=== PATIENT | female | born 1935 | race Caucasian/White ===

== ENCOUNTER → 2016-09-27 | Outpatient (CLI) | payer MEDICARE ==
[2016-09-27 11:37] LABS: ANION GAP 11 (5-19); BLOOD UREA NITROGEN 29 mg/dL (7-20); CALCIUM 9.3 mg/dL (8.4-10.2); CARBON DIOXIDE 30 mmol/L (22-30); CHLORIDE 102 mmol/L (98-107); CHOLESTEROL 184.58 mg/dL (0-200); CREATININE RESULT 1.31 mg/dL (0.52-1.25); Direct HDL 52 mg/dL (>40); GLUCOSE 142 mg/dL (75-110); POTASSIUM 5.4 mmol/L (3.6-5.0); TRIGLYCERIDES 115 mg/dL (<150)
[2016-09-27 11:47] LABS: DIRECT LDL 106 mg/dL (<100)
== END ==
LOC: OD 09:25
PROVIDERS: ATTEND Family Medicine
DX: E11.65 Type 2 diabetes mellitus with hyperglycemia (principal); E78.5 Hyperlipidemia, unspecified; I10 Essential (primary) hypertension; Z79.899 Other long term (current) drug therapy
CPT/HCPCS: 36415; 80048; 80061; 82043; 83036; 84443

== ENCOUNTER → 2016-10-23 | Outpatient (CLI) | payer MEDICARE | LOC: WI 08:47 | PROVIDERS: ATTEND Family Medicine | DX: Z12.31 Encounter for screening mammogram for malignant neoplasm of breast (principal) | CPT/HCPCS: 77067; G0202 ==

== ENCOUNTER → 2016-12-07 | Outpatient (CLI) | payer MEDICARE ==
[2016-12-07 10:36] LABS: APPEARANCE,URINE CLOUDY; BILIRUBIN,URINE NEGATIVE (NEGATIVE); GLUCOSE, URINE NEGATIVE (NEGATIVE); KETONES,URINE NEGATIVE (NEGATIVE); LEUKOCYTE ESTERASE,URINE TRACE (NEGATIVE); NITRITE,URINE NEGATIVE (NEGATIVE); PROTEIN,URINE NEGATIVE (NEGATIVE); UROBILINOGEN,URINE NEGATIVE mg/dL (<2.0)
[2016-12-07 11:05] LABS: ABSOLUTE EOSINOPHILS # (AUTO) 0.2 10^3/uL (0.0-0.6); ABSOLUTE LYMPHOCYTES (AUTO) 2.6 10^3/uL (0.5-4.7); ABSOLUTE MONOCYTES (AUTO) 0.7 10^3/uL (0.1-1.4); ABSOLUTE NEUT (AUTO) 4.6 10^3/uL (1.7-8.2); BASOPHILS % (AUTO) 0.5 % (0-2); EOSINOPHILS % (AUTO) 1.9 % (0-6); HEMATOCRIT 35.9 % (36.0-47.0); HGB HCT DIFFERENCE 0.1; LYMPHOCYTES % (AUTO) 32.5 % (13-45); MEAN CORPUSCULAR HEMOGLOBIN 26.3 pg (27.0-33.4); MEAN CORPUSCULAR HGB CONC 33.4 g/dL (32.0-36.0); MEAN CORPUSCULAR VOLUME 79 fl (80-97); MONOCYTES % (AUTO) 8.5 % (3-13); RED BLOOD COUNT 4.55 10^6/uL (3.72-5.28); SEGMENTED NEUTROPHILS % (AUTO) 56.6 % (42-78); WHITE BLOOD COUNT 8.1 10^3/uL (4.0-10.5)
[2016-12-07 11:18] LABS: ANION GAP 16 (5-19); BLOOD UREA NITROGEN 24 mg/dL (7-20); CALCIUM 9.4 mg/dL (8.4-10.2); CARBON DIOXIDE 26 mmol/L (22-30); CHLORIDE 100 mmol/L (98-107); CREATININE RESULT 1.41 mg/dL (0.52-1.25); GLUCOSE 211 mg/dL (75-110); PHOSPHORUS 4.6 mg/dL (2.5-4.5); POTASSIUM 4.8 mmol/L (3.6-5.0); SODIUM 141.5 mmol/L (137-145)
[2016-12-08 10:38] LABS: CREATININE URINE 87.4 mg/dL (Not Estab.); MICROALBUMIN URINE 15.8 ug/mL (Not Estab.)
[2016-12-08 11:27] LABS: VITAMIN D 25-HYDROXY 14.2 ng/mL (30.0-100.0)
== END ==
LOC: OD 09:38
PROVIDERS: ATTEND Internal Medicine Nephrology
DX: N18.3 Chronic kidney disease, stage 3 (moderate) (principal); E11.21 Type 2 diabetes mellitus with diabetic nephropathy; E87.5 Hyperkalemia
CPT/HCPCS: 36415; 80048; 81001; 82040; 82043; 82306; 82570; 83970; 84100; 85025

== ENCOUNTER → 2017-05-29 | Outpatient (CLI) | payer MEDICARE | LOC: OD 11:29 | PROVIDERS: ATTEND Family Medicine | DX: E11.65 Type 2 diabetes mellitus with hyperglycemia (principal) | CPT/HCPCS: 36415; 83036 ==

== ENCOUNTER → 2017-10-31 | Outpatient (CLI) | payer MEDICARE ==
--- NOTE | 2017-11-01 08:50 | WOMENS IMAGING REPORT ---
EXAM DESCRIPTION: 3D SCREENING MAMMO BILAT COMPLETED DATE/TIME: 10/31/2017 12:31 pm REASON FOR STUDY: ROUTINE SCREENING; Z12.31 Z12.31 ENCNTR SCREEN MAMMOGRAM FOR MALIGNANT NEOPLASM O F PADMINI COMPARISON: 2012 to 2016 TECHNIQUE: Standard craniocaudal and mediolateral oblique views of each breast recorded using digita l acquisition and breast tomosynthesis. LIMITATIONS: None. FINDINGS: No masses, calcifications or architectural distortion. No areas of suspicion. Read with the assistance of CAD. .[facility] - R2 Cenova Version 1.3 .[facility] - R2 Cenova Version 1.3 .[facility] - R2 Cenova Version 2.4 .[facility] [place] Cenova Version 2.4 .[facility] - R2 Mailroom Associate Version 9.2 IMPRESSION: NORMAL MAMMOGRAM. BIRADS 1. BREAST DENSITY: b. There are scattered areas of fibroglandular density. BIRAD: 1 NEGATIVE RECOMMENDATION: ROUTINE SCREENING COMMENT: The patient has been notified of the results by letter per SA requirements. Additional no tification policies are in place for contacting patient with suspicious or incomplete findings. Quality ID #[id number]: The [employer] recommends an annual screening mammogram for women aged 40 years or over. This facility utilizes a reminder system to ensure that all patients receive reminder letters, and/or direct phone calls for appointments. This includes reminders for routine scr eening mammograms, diagnostic mammograms, or other Breast Imaging Interventions when appropriate. Th is patient will be placed in the appropriate reminder system. The [employer] (ACR) has developed recommendations for screening MRI of the breast s in certain patient populations, to be used in conjunction with mammography. Breast MRI surveillanc e may be appropriate for women with more than 20% lifetime risk of developing breast cancer as deter mined by genetic testing, significant family history of the disease, or history of mantle radiation f or Hodgkins Disease. ACR Practice Guidelines 2008. DBT Technology DBT is a type of tomographic mammography. With conventional mammography, overlapping breast tissue ma y make lesions difficult to detect, even with good compression. DBT uses an x-ray tube that rotates a round the breast, taking images at different angles. These images are then combined to create thin sl ices of the breast that the radiologist can view as a 3D reconstruction. The GO-SIM unit can perform full-field digital mammograms (2D imaging); or DBT (3D imaging); or both, in a combination mode that quickly performs both the mammogram and the tomosynthesis scan while the breast is still compressed. PQRS 6045F: Fluoroscopic imaging is not utilized for breast tomosynthesis. TECHNICAL DOCUMENTATION: FINDING NUMBER: (1) ASSESSMENT: (1) JOB ID: [id number] [employer]- All Rights Reserved
== END ==
LOC: WI 10:36
PROVIDERS: ATTEND Family Medicine
DX: Z12.31 Encounter for screening mammogram for malignant neoplasm of breast (principal)
CPT/HCPCS: 77063; 77067

== ENCOUNTER → 2017-12-27 | Outpatient (CLI) | payer MEDICARE ==
[2017-12-27 11:08] LABS: ANION GAP 13 (5-19); BLOOD UREA NITROGEN 18 mg/dL (7-20); CALCIUM 9.2 mg/dL (8.4-10.2); CARBON DIOXIDE 29 mmol/L (22-30); CHLORIDE 101 mmol/L (98-107); GLUCOSE 165 mg/dL (75-110); POTASSIUM 4.6 mmol/L (3.6-5.0)
[2017-12-28 10:32] LABS: CHOLESTEROL 165.13 mg/dL (0-200); TRIGLYCERIDES 87 mg/dL (<150)
[2017-12-28 10:43] LABS: DIRECT LDL 80 mg/dL (<100)
== END ==
LOC: OD 08:57
PROVIDERS: ATTEND Family Medicine
DX: E11.65 Type 2 diabetes mellitus with hyperglycemia (principal); I10 Essential (primary) hypertension; Z79.899 Other long term (current) drug therapy
CPT/HCPCS: 36415; 80048; 80061; 83036; 84443

== ENCOUNTER → 2018-06-24 | Outpatient (CLI) | payer MEDICARE | LOC: OD 12:24 | PROVIDERS: ATTEND Family Medicine | DX: E03.9 Hypothyroidism, unspecified (principal); E11.65 Type 2 diabetes mellitus with hyperglycemia; Z79.899 Other long term (current) drug therapy | CPT/HCPCS: 36415; 83036; 84436; 84443 ==

== ENCOUNTER → 2018-11-01 | Outpatient (CLI) | payer MEDICARE ==
--- NOTE | 2018-11-01 09:39 | WOMENS IMAGING REPORT ---
EXAM DESCRIPTION: 3D SCREENING MAMMO BILAT COMPLETED DATE/TIME: 11/01/2018 9:23 am REASON FOR STUDY: Z12.31 ENCOUNTER FOR SCREENING MAMMOGRAM FOR MALIGNANT NEOPLASM OF BREAST Z12.31 ENCNTR SCREEN MAMMOGRAM FOR MALIGNANT NEOPLASM OF PADMINI COMPARISON: Multiple since 2007 TECHNIQUE: Standard craniocaudal and mediolateral oblique views of each breast recorded using digita l acquisition and breast tomosynthesis. LIMITATIONS: None. FINDINGS: No masses, calcifications or architectural distortion. No areas of suspicion. Read with the assistance of CAD. .[facility] - R2 Cenova Version 1.3 .[facility] Imaging - R2 Cenova Version 2.1 .[facility] Imaging - R2 Cenova Version 2.4 .[facility] [place] - R2 Cenova Version 2.4 .[facility] - R2 Integration Technician Version 9.2 IMPRESSION: NORMAL MAMMOGRAM. BIRADS 1. BREAST DENSITY: a. The breasts are almost entirely fatty. BIRAD: 1 NEGATIVE RECOMMENDATION: ROUTINE SCREENING COMMENT: The patient has been notified of the results by letter per SA requirements. Additional no tification policies are in place for contacting patient with suspicious or incomplete findings. Quality ID #[id number]: The [employer] recommends an annual screening mammogram for women aged 40 years or over. This facility utilizes a reminder system to ensure that all patients receive reminder letters, and/or direct phone calls for appointments. This includes reminders for routine scr eening mammograms, diagnostic mammograms, or other Breast Imaging Interventions when appropriate. Th is patient will be placed in the appropriate reminder system. The [employer] (ACR) has developed recommendations for screening MRI of the breast s in certain patient populations, to be used in conjunction with mammography. Breast MRI surveillanc e may be appropriate for women with more than 20% lifetime risk of developing breast cancer as deter mined by genetic testing, significant family history of the disease, or history of mantle radiation f or Hodgkins Disease. ACR Practice Guidelines 2008. DBT Technology DBT is a type of tomographic mammography. With conventional mammography, overlapping breast tissue ma y make lesions difficult to detect, even with good compression. DBT uses an x-ray tube that rotates a round the breast, taking images at different angles. These images are then combined to create thin sl ices of the breast that the radiologist can view as a 3D reconstruction. The [employer] unit can perform full-field digital mammograms (2D imaging); or DBT (3D imaging); or both, in a combination mode that quickly performs both the mammogram and the tomosynthesis scan while the breast is still compressed. PQRS 6045F: Fluoroscopic imaging is not utilized for breast tomosynthesis. TECHNICAL DOCUMENTATION: FINDING NUMBER: (1) ASSESSMENT: (1) JOB ID: [id number] [employer]- All Rights Reserved Reading location - IP/workstation name: [email or web address][email or web address] [email or web address]
== END ==
LOC: WI 09:01
PROVIDERS: ATTEND Family Medicine
DX: Z12.31 Encounter for screening mammogram for malignant neoplasm of breast (principal)
CPT/HCPCS: 77063; 77067

== ENCOUNTER → 2018-12-26 | Outpatient (CLI) | payer MEDICARE ==
[2018-12-26 10:20] LABS: ANION GAP 11 (5-19); BLOOD UREA NITROGEN 21 mg/dL (7-20); CALCIUM 9.5 mg/dL (8.4-10.2); CARBON DIOXIDE 27 mmol/L (22-30); CHLORIDE 97 mmol/L (98-107); CHOLESTEROL 138.12 mg/dL (0-200); GLUCOSE 131 mg/dL (75-110); POTASSIUM 4.4 mmol/L (3.6-5.0); SODIUM 134.8 mmol/L (137-145); TRIGLYCERIDES 90 mg/dL (<150)
[2018-12-26 10:32] LABS: DIRECT LDL 67 mg/dL (<100)
== END ==
LOC: OD 09:10
PROVIDERS: ATTEND Family Medicine
DX: E03.9 Hypothyroidism, unspecified (principal); E78.5 Hyperlipidemia, unspecified; I10 Essential (primary) hypertension; Z79.899 Other long term (current) drug therapy
CPT/HCPCS: 36415; 80048; 80061; 83036; 84443

== ENCOUNTER 2019-12-08 12:49 | Inpatient (IN) | payer MEDICARE ==
--- NOTE | 2019-12-08 13:06 | ER Document Report ---
ED Respiratory Problem - General Chief Complaint: Shortness Of Breath Stated Complaint: SHORTNESS OF BREATH Time Seen by Provider: 12/08/19 12:59 Primary Care Provider: JOURDAN JIMENEZ MD [Primary Care Provider] - Follow up as needed Notes: 84-year-old female with history of hypertension hyperlipidemia presents to the ER complaining of difficulty breathing and leg swelling the last several days. The patient does not have a roster clerk. She tried to call her primary care doctor Dr. Jimenez but they were closed. The patient stated her problem breathing is worse with exertion and lying flat. The patient denies any fever chills cough or sore throat. Denies chest pain. States she knows ever has had a history of A. fib or heart failure. Patient also states she is been out of her meds now for over a week. She has not been able to get into her doctor to fill them. TRAVEL OUTSIDE OF THE [place] IN LAST 30 DAYS: No - Related Data Allergies/Adverse Reactions: quinine [Quinine] Allergy (Verified 07/20/11 10:19) Dizziness Past Medical History - Social History Smoking Status: Unknown if Ever Smoked Family History: None - Past Medical History Cardiac Medical History: Reports: Hx Hypercholesterolemia, Hx Hypertension Endocrine Medical History: Reports: Hx Diabetes Mellitus Type 2 Past Surgical History: Reports: Hx Hysterectomy - Immunizations Hx Diphtheria, Pertussis, Tetanus Vaccination: Yes - 3yrs agp Review of Systems - Review of Systems Constitutional: denies: Chills, Diaphoresis, Fever EENT: No symptoms reported Cardiovascular: Dyspnea, Edema. denies: Chest pain, Palpitations Respiratory: Short of breath. denies: Cough, Hurts to breathe, Hemoptysis, Wheezing Gastrointestinal: denies: Nausea Musculoskeletal: No symptoms reported Skin: No symptoms reported Neurological/Psychological: No symptoms reported -: Yes All other systems reviewed and negative Physical Exam - Vital signs Vitals: Temp Pulse Ox 98.0 F 97 12/08/19 12:50 12/08/19 12:50 - Notes Notes: GENERAL_APPEARANCE: well_nourished, alert, cooperative, slight difficulty breathing VITALS: reviewed, see vital signs table. HEAD: no_swelling\tenderness on the head. EYES: PERRL, EOMI, conjunctiva_clear. NOSE: no_nasal_discharge. MOUTH: (-)decreased moisture. THROAT: no_tonsilar_inflammation, no_airway_obstruction. no_lymphadenopathy NECK: supple, no_neck_tenderness, (-)thyromegaly. Positive JVD BACK: no_back_tenderness. CHEST_WALL: no_chest_tenderness. LUNGS: no_wheezing, no_rales, no_rhonchi, (-)accessory muscle use, good air exchange bilateral. HEART:-Rapid_rate, irregular_rhythm, normal_S1, normal_S2, (-)S3, (-)S4, no_murmur, no_rub. ABDOMEN: normal_BS, soft, no_abd_tenderness, (-)guarding, (-)rebound, no_organomegaly, no_abd_masses. EXTREMITIES: strength 5/5 in all_extremities, good pulses in all_extremities, no_swelling\tenderness in the extremities, 3+ pitting_edema. SKIN: warm, dry, good_color, no_rash. MENTAL_STATUS: speech_clear, oriented_X_3, normal_affect, responds_appropriately to questions. Course - Re-evaluation Re-evalutation: 12/08/19 13:19 84-year-old female presents to the emergency department with difficulty breathing. Patient was found to have A. fib with RVR replaced on Cardizem and Cardizem drip will diurese the patient. We will do lab work-up. Patient states she has no history of A. fib. She has been out of her medicines for over a week. Patient will likely be hospitalized for atrial fibrillation. 12/08/19 14:58 Patient was rate controlled with Cardizem and Cardizem drip. Looking back in her history it looks like she does have a history of A. fib she does not look to be anticoagulated. The patient is in mild heart failure we will give the patient 40 mg of Lasix IV and since she is not anticoagulated we will give some Lovenox. Patient is not a very good historian. I spoke with the hospital service to hospitalize the patient for further care. - Vital Signs Vital signs: Temp Pulse Resp BP Pulse Ox 98.0 F 22 H 129/113 H 96 12/08/19 13:26 12/08/19 14:46 12/08/19 14:46 12/08/19 14:45 - Laboratory Result Diagrams: 12/08/19 13:05 12/08/19 13:05 Laboratory results interpreted by me: 12/08/19 12/08/19 12/08/19 13:05 13:05 13:05 MCV 79 L MCH 26.3 L RDW 16.1 H Seg Neuts % (Manual) 81 H Lymphocytes % (Manual) 11 L Sodium 132.6 L Chloride 94 L BUN 21 H Est GFR (MDRD) Non-Af 56 L Glucose 272 H NT-Pro-B Natriuret Pep 10670 H - EKG Interpretation by Me Rate: Tachycardia Rhythm: A.Fib Critical Care Note - Critical Care Note Total time excluding time spent on procedures (mins): 31 Discharge - Discharge Clinical Impression: Atrial fibrillation with RVR CHF (congestive heart failure) Qualifiers: Heart failure type: systolic Heart failure chronicity: acute Qualified Code(s): I50.21 - Acute systolic (congestive) heart failure Condition: Fair Disposition: ADMITTED INPATIENT Admitting Provider: Yesenia (Hospitalist) Unit Admitted: Telemetry Referrals: JOURDAN JIMENEZ MD [Primary Care Provider] - Follow up as needed
[2019-12-08] MEDS ORDERED: DILTIAZEM HCL/D5W 125 MG/125 ML RTUINJ IV PRN (13:15)
[2019-12-08] MEDS ORDERED: DILTIAZEM HCL INJ 25 MG/5 ML VIAL IV ONE (13:15)
--- NOTE | 2019-12-08 13:23 | EKG REPORT ---
SEVERITY:- ABNORMAL ECG - ATRIAL FIBRILLATION NONSPECIFIC IVCD WITH LAD LVH WITH SECONDARY REPOLARIZATION ABNORMALITY PROBABLE INFERIOR INFARCT, OLD : Confirmed by: Laura Ramires 08-Dec-2019 13:23:00
[2019-12-08 13:28] LABS: HEMATOCRIT 36.5 % (36.0-47.0); HEMOGLOBIN 12.1 g/dL (12.0-15.5); MEAN CORPUSCULAR HEMOGLOBIN 26.3 pg (27.0-33.4); MEAN CORPUSCULAR HGB CONC 33.1 g/dL (32.0-36.0); MEAN CORPUSCULAR VOLUME 79 fl (80-97); PLATELET COUNT 214 10^3/uL (150-450); RED CELL DISTRIBUTION WIDTH 16.1 % (11.5-14.0); WHITE BLOOD COUNT 8.4 10^3/uL (4.0-10.5)
--- NOTE | 2019-12-08 13:31 | RADIOLOGY REPORT (SQ) ---
EXAM DESCRIPTION: CHEST SINGLE VIEW IMAGES COMPLETED DATE/TIME: 12/08/2019 1:22 pm REASON FOR STUDY: short of breath COMPARISON: None. NUMBER OF VIEWS: One view. TECHNIQUE: Single frontal radiographic view of the chest acquired. LIMITATIONS: None. FINDINGS: LUNGS AND PLEURA: Small effusions, right greater than left with associated airspace diseas e. MEDIASTINUM AND HILAR STRUCTURES: No masses or contour abnormality. HEART AND VASCULATURE: Cardiac enlargement. Vascular congestion. BONES: No acute findings. HARDWARE: None in the chest. OTHER: No other significant finding. IMPRESSION: CHF. TECHNICAL DOCUMENTATION: JOB ID: [id number] [employer]- All Rights Reserved Reading location - IP/workstation name: [email or web address]
[2019-12-08 13:32] LABS: INTERNATIONAL RATION (INR) 1.21; PARTIAL THROMBOPLASTIN TIME 29.2 SEC (23.5-35.8); PROTHROMBIN TIME 15.4 SEC (11.4-15.4)
[2019-12-08 13:55] LABS: ALBUMIN 3.7 g/dL (3.5-5.0); ALKALINE PHOSPHATASE 125 U/L (38-126); ANION GAP 12 (5-19); ASPARTATE AMINO TRANSFERASE 35 U/L (14-36); BILIRUBIN,DIRECT 0.3 mg/dL (0.0-0.4); BILIRUBIN,TOTAL 1.3 mg/dL (0.2-1.3); BLOOD UREA NITROGEN 21 mg/dL (7-20); CALCIUM 8.7 mg/dL (8.4-10.2); CARBON DIOXIDE 27 mmol/L (22-30); CHLORIDE 94 mmol/L (98-107); GLUCOSE 272 mg/dL (75-110); POTASSIUM 4.9 mmol/L (3.6-5.0); TOTAL PROTEIN 7.3 g/dL (6.3-8.2)
[2019-12-08 14:17] LABS: ABSOLUTE LYMPHOCYTES# (MANUAL) 0.9 10^3/uL (0.5-4.7); ABSOLUTE MONOCYTES # (MANUAL) 0.7 10^3/uL (0.1-1.4); BASOPHILS % (MANUAL) 0 % (0-2); EOSINOPHILS % (MANUAL) 0 % (0-6); LYMPHOCYTES % (MANUAL) 11 % (13-45); MONOCYTES % (MANUAL) 8 % (3-13); SEGMENTED NEUTROPHILS % (MAN) 81 % (42-78); TOTAL CELLS COUNTED 100
[2019-12-08 14:19] LABS: ANISOCYTOSIS 1+; BURR CELLS SLIGHT; OVALOCYTES SLIGHT; PLATELET COMMENT ADEQUATE; POLYCHROMASIA SLIGHT; TARGET CELLS SLIGHT
[2019-12-08 14:40] LABS: CREATINE KINASE MB 4.49 ng/mL (<4.55); TROPONIN I 0.021 ng/mL
[2019-12-08] MEDS ORDERED: FUROSEMIDE INJ/PF 40 MG/4 ML SDV IV ONE (14:51)
[2019-12-08] MEDS ORDERED: ASPIRIN 81 MG TABLET, CHEWABLE PO ONE (14:51)
[2019-12-08] MEDS ORDERED: ENOXAPARIN SODIUM INJ 100 MG/1 ML DISP.SYRIN SUBCUT SCH (15:00)
[2019-12-08] MEDS ORDERED: GLUCAGON,HUMAN RECOMB 1 MG INJ IM PRN (16:04)
[2019-12-08] MEDS ORDERED: DEXTROSE 50%-WATER 25 GM/50 ML DISP.SYRIN IV PRN ×2 (16:04)
[2019-12-08] MEDS ORDERED: DEXTROSE 40% GEL 15 GM TUBE PO PRN ×2 (16:04)
--- NOTE | 2019-12-08 16:22 | PDOC H&P ---
History of Present Illness Admission Date/PCP: 12/08/19 15:25 JOURDAN CALZADA MD Patient complains of: Increased leg swelling History of Present Illness: ALICIA DAMON is a 84 year old female with a history of hypertension, type 2 diabetes mellitus, hypothyroidism, who presents with complaints of increased leg swelling going on for the past 10 days. Patient also admits to mild dyspnea on exertion. Denies any history of A. fib or congestive heart failure. Admits to orthopnea. Denies PND. Denies any chest pain, rhinorrhea, fever, chills. Denies sick contacts. Denies any out of state travels since August 2019. Denies any exposures to any known sick persons. She does occasionally get food from restaurants otherwise does not do much of any outing. Patient was noted to be A. fib RVR in the 130s in the ER and placed on Cardizem drip. Referred to hospitalist service for admission. Past Medical History Cardiac Medical History: Reports: Hyperlipidema, Hypertension Endocrine Medical History: Reports: Diabetes Mellitus Type 2 Past Surgical History Past Surgical History: Reports: Hysterectomy Social History Lives with: Alone Smoking Status: Never Smoker Frequency of Alcohol Use: None Hx Recreational Drug Use: No - Advance Directive Resuscitation Status: Full Code Family History Family History: DM, Hypertension Parental Family History Reviewed: Yes Children Family History Reviewed: NA Sibling(s) Family History Reviewed.: Yes Medication/Allergy Home Medications: Amlodipine Besylate [Norvasc 10 mg Tablet] 10 mg PO DAILY 12/08/19 Atorvastatin Calcium [Lipitor 40 mg Tablet] 40 mg PO QHS 12/08/19 Levothyroxine Sodium [Synthroid 0.05 mg Tablet] 0.05 mg PO Q6AM 12/08/19 Metformin HCl 0.5 tab PO BID 12/08/19 Valsartan/Hydrochlorothiazide [Valsartan-Hctz 320-25 mg Tab] 1 tab PO DAILY 12/08/19 Allergies/Adverse Reactions: quinine [Quinine] Allergy (Verified 07/20/11 10:19) Dizziness Review of Systems Constitutional: ABSENT: chills, fatigue, fever(s) Eyes: ABSENT: visual disturbances Nose, Mouth, and Throat: ABSENT: headache(s), sore throat Cardiovascular: PRESENT: dyspnea on exertion, orthropnea. ABSENT: chest pain Respiratory: ABSENT: hemoptysis Gastrointestinal: ABSENT: abdominal pain, nausea, vomiting Genitourinary: ABSENT: dysuria Musculoskeletal: ABSENT: back pain Integumentary: ABSENT: diaphoresis Neurological: ABSENT: confusion, dizziness Endocrine: ABSENT: polyuria Hematologic/Lymphatic: ABSENT: easy bleeding Physical Exam Vital Signs: Temp Pulse Resp BP Pulse Ox 98.0 F 30 H 136/82 H 92 12/08/19 13:26 12/08/19 15:46 12/08/19 15:46 12/08/19 15:46 Intake & Output 12/07/19 12/08/19 12/09/19 06:59 06:59 06:59 Weight 95 kg General appearance: PRESENT: no acute distress, cooperative Mouth exam: PRESENT: neck supple Neck exam: ABSENT: JVD Respiratory exam: PRESENT: crackles, symmetrical, unlabored. ABSENT: tachypnea, wheezes Cardiovascular exam: PRESENT: irregular rhythm, +S1, +S2. ABSENT: tachycardia GI/Abdominal exam: PRESENT: soft. ABSENT: rebound, rigid, tenderness Extremities exam: ABSENT: pedal edema Neurological exam: PRESENT: alert, awake, oriented to person, oriented to place, oriented to time Psychiatric exam: ABSENT: agitated, anxious Results Laboratory Results: 12/08/19 13:05 12/08/19 13:05 12/08/19 12/08/19 13:05 13:05 WBC 8.4 RBC 4.60 Hgb 12.1 Hct 36.5 MCV 79 L MCH 26.3 L MCHC 33.1 RDW 16.1 H Plt Count 214 Seg Neutrophils % Not Reportable Sodium 132.6 L Potassium 4.9 Chloride 94 L Carbon Dioxide 27 Anion Gap 12 BUN 21 H Creatinine 0.95 Est GFR ( Amer) > 60 Glucose 272 H Calcium 8.7 Total Bilirubin 1.3 AST 35 Alkaline Phosphatase 125 Total Protein 7.3 Albumin 3.7 12/08/19 13:05 CK-MB (CK-2) 4.49 Troponin I 0.021 NT-Pro-B Natriuret Pep 52562 H Impressions: Chest X-Ray 12/08/19 12:51 IMPRESSION: CHF. Assessment and Plan - Diagnosis (1) Atrial fibrillation with RVR Is this a current diagnosis for this admission?: Yes Plan: Cannot specify if paroxysmal or persistent. New onset A. fib. Currently on a Cardizem drip. I will start patient on p.o. Cardizem and try to wean off drip. CHADSVASC score of 5 --start on Eliquis Elevated troponin-likely secondary to tachyarrhythmia. Repeat troponin levels. (2) Acute CHF (congestive heart failure) Qualifiers: Heart failure type: unspecified Qualified Code(s): I50.9 - Heart failure, unspecified Is this a current diagnosis for this admission?: Yes Plan: BNP significantly elevated, chest x-ray showing increased vascular congestion, crackles on exam. New onset. Associated with tachyarrhythmia. Cardiology consulted. Start patient on Lasix IV 40 mg daily. Strict I's and O's. Check echocardiogram. (3) Diabetes mellitus type 2 in obese Is this a current diagnosis for this admission?: Yes Plan: Continue metformin. Sliding scale insulin and Accu-Cheks. ADA diet (4) Hypertension Qualifiers: Hypertension type: essential hypertension Qualified Code(s): I10 - Essential (primary) hypertension Is this a current diagnosis for this admission?: Yes Plan: Continue valsartan, hydrochlorothiazide and amlodipine (5) Hypothyroidism Qualifiers: Hypothyroidism type: unspecified Qualified Code(s): E03.9 - Hypothyroidism, unspecified Is this a current diagnosis for this admission?: Yes Plan: Check TSH. Continue Synthroid. - Time Time Spent with patient: 25-34 minutes
[2019-12-08] MEDS: VALSARTAN 160 MG TABLET PO SCH (17:30)
[2019-12-08] MEDS: METFORMIN HCL 850 MG TABLET PO SCH (17:31)
[2019-12-08] MEDS ORDERED: DILTIAZEM HCL 60 MG TABLET PO SCH (18:00)
[2019-12-08] MEDS ORDERED: APIXABAN 2.5 MG TABLET PO SCH (18:00)
--- NOTE | 2019-12-08 18:06 | EKG REPORT ---
SEVERITY:- ABNORMAL ECG - ATRIAL FIBRILLATION, V-RATE 66-87 LEFT AXIS DEVIATION LOW VOLTAGE IN FRONTAL LEADS BORDERLINE R WAVE PROGRESSION, ANTERIOR LEADS NONSPECIFIC T ABNORMALITIES, DIFFUSE LEADS : Confirmed by: Laura Ramires 08-Dec-2019 18:06:09
[2019-12-08] MEDS ORDERED: METOPROLOL TARTRATE PF/INJ 5 MG/5 ML SDV IV PRN (18:47)
--- NOTE | 2019-12-08 21:25 | XCELERA REPORT ---
[address] [address] Transthoracic Echocardiogram Report Name: ALICIA DAMON Age: 84 yrs Gender: Female : 1935 Patient Status: Inpatient Patient Location: [address] [place], [place] [address] Study Date: 12/08/2019 06:54 PM Height: 63 in Weight: 209 lb BSA: 2.0 m2 Procedure: A complete two-dimensional transthoracic echocardiogram was performed (2D, M-mode, spectral and color flow Doppler). The study was technically difficult with many images being suboptimal in quality. Reason For Study: new onset afib and chf Ordering Physician: DONOVAN DARBY Performed By: Rosalva King Interpretation Summary The Ejection Fraction estimate is 35-40% Left ventricular systolic function is moderately reduced. There is moderate concentric left ventricular hypertrophy. The left ventricle is grossly normal size. Doppler measurements suggest pseudonormalized left ventricular relaxation, which is associated with grade II/IV or mild to moderate diastolic dysfunction There is apical wall akinesis There is distal anterior wall akinesis The right ventricle is mildly dilated. The right ventricular systolic function is borderline reduced. The right atrium is moderately dilated. The left atrium is moderately dilated. There is a moderate amount of mitral regurgitation There is no mitral valve stenosis. There is mild aortic stenosis There is a moderate amount of aortic regurgitation There is a moderate to severe amount of tricuspid regurgitation Best estimated right ventricular systolic pressure is elevated at 50-60mmHg. There is moderate pulmonary hypertension by echo The inferior vena cava appeared normal and decreased < 50% with respiration (RAP 10-15 mmHg) There is no pericardial effusion. Small right pleural effusion. MMode/2D Measurements & Calculations RVDd: 3.3 cm LVIDd: 4.3 cm FS: 20.3 % Ao root diam: 2.9 cm IVSd: 1.3 cm LVIDs: 3.4 cm EDV(Teich): 82.7 ml Ao root area: 6.7 cm2 LVPWd: 1.3 cm ESV(Teich): 48.2 ml LA dimension: 4.2 cm EF(Teich): 41.8 % Doppler Measurements & Calculations MV E max abdullahi: MV P1/2t max abdullahi: Ao V2 max: AI max abdullahi: 139.3 cm/sec 156.1 cm/sec 173.4 cm/sec 331.2 cm/sec MV A max abdullahi: MV P1/2t: 68.1 msec Ao max PG: AI max P.6 cm/sec MVA(P1/2t): 3.2 cm2 12.0 mmHg 43.9 mmHg MV E/A: 3.0 MV dec slope: AI dec slope: 287.0 cm/sec2 671.0 cm/sec2 AI P1/2t: MV dec time: 0.27 sec 338.0 msec LV V1 max PG: PA V2 max: TR max abdullahi: AV P1/2t-pr_phl: 3.1 mmHg 70.1 cm/sec 346.1 cm/sec 338.0 msec LV V1 max: PA max P.0 mmHg TR max P.5 cm/sec 47.9 mmHg MV P1/2t-pr_phl: 68.1 msec Left Ventricle The left ventricle is grossly normal size. There is moderate concentric left ventricular hypertrophy. Left ventricular systolic function is moderately reduced. The Ejection Fraction estimate is 35-40%. Doppler measurements suggest pseudonormalized left ventricular relaxation, which is associated with grade II/IV or mild to moderate diastolic dysfunction. There is apical wall akinesis. There is distal anterior wall akinesis. Right Ventricle The right ventricle is mildly dilated. The right ventricular systolic function is borderline reduced. Atria The right atrium is moderately dilated. The left atrium is moderately dilated. Interarterial septum not well visualized and not well dopplered. Cannot comment on ASD/PFO presence. Mitral Valve There is mild mitral leaflet calcification. There is moderate mitral annular calcification. There is no mitral valve stenosis. There is a moderate amount of mitral regurgitation. Aortic Valve The aortic valve is moderately calcified. There is mild aortic stenosis. There is a moderate amount of aortic regurgitation. Tricuspid Valve The tricuspid valve is not well visualized, but is grossly normal. There is no tricuspid stenosis. There is a moderate to severe amount of tricuspid regurgitation. Best estimated right ventricular systolic pressure is elevated at 50-60mmHg. There is moderate pulmonary hypertension by echo. Pulmonic Valve The pulmonic valve is not well visualized. Great Vessels The aortic root is not well visualized but is probably normal size. The inferior vena cava appeared normal and decreased < 50% with respiration (RAP 10-15 mmHg). Effusions There is no pericardial effusion. Small right pleural effusion. : DONOVAN DARBY Shyamal
[2019-12-08] MEDS: APIXABAN 2.5 MG TABLET PO SCH (21:37)
[2019-12-08] MEDS: METOPROLOL SUCCINATE 25 MG TAB.SR.24H PO SCH (21:38)
[2019-12-08] MEDS: ATORVASTATIN CALCIUM 40 MG TABLET PO SCH (21:38)
[2019-12-08] MEDS: INSULIN LISPRO 100 UNIT/ML 3 ML VIAL SUBCUT SCH (21:39)
[2019-12-08] MEDS: CALCIUM CARBONATE 500 MG TAB.CHEW PO PRN (21:39)
[2019-12-09 05:11] LABS: ABSOLUTE EOSINOPHILS # (AUTO) 0.1 10^3/uL (0.0-0.6); ABSOLUTE LYMPHOCYTES (AUTO) 1.4 10^3/uL (0.5-4.7); ABSOLUTE MONOCYTES (AUTO) 1.3 10^3/uL (0.1-1.4); BASOPHILS % (AUTO) 0.5 % (0-2); EOSINOPHILS % (AUTO) 0.6 % (0-6); HEMATOCRIT 34.4 % (36.0-47.0); HEMOGLOBIN 11.3 g/dL (12.0-15.5); LYMPHOCYTES % (AUTO) 14.2 % (13-45); MEAN CORPUSCULAR HEMOGLOBIN 25.6 pg (27.0-33.4); MEAN CORPUSCULAR HGB CONC 32.7 g/dL (32.0-36.0); MEAN CORPUSCULAR VOLUME 78 fl (80-97); MONOCYTES % (AUTO) 13.1 % (3-13); PLATELET COUNT 195 10^3/uL (150-450); RED CELL DISTRIBUTION WIDTH 15.4 % (11.5-14.0); SEGMENTED NEUTROPHILS % (AUTO) 71.6 % (42-78); TOTAL CELLS COUNTED % (AUTO) 100 %; WHITE BLOOD COUNT 9.7 10^3/uL (4.0-10.5)
[2019-12-09 05:32] LABS: ANION GAP 10 (5-19); BLOOD UREA NITROGEN 22 mg/dL (7-20); CALCIUM 8.4 mg/dL (8.4-10.2); CARBON DIOXIDE 27 mmol/L (22-30); CHLORIDE 95 mmol/L (98-107); GLUCOSE 146 mg/dL (75-110); PHOSPHORUS 3.6 mg/dL (2.5-4.5); POTASSIUM 4.1 mmol/L (3.6-5.0)
[2019-12-09] MEDS: LEVOTHYROXINE SODIUM 0.05 MG TABLET PO SCH (06:16)
[2019-12-09] MEDS: INSULIN LISPRO 100 UNIT/ML 3 ML VIAL SUBCUT SCH ×4 (07:48→21:39)
[2019-12-09] MEDS: METFORMIN HCL 850 MG TABLET PO SCH ×2 (09:10→17:32)
[2019-12-09] MEDS: APIXABAN 2.5 MG TABLET PO SCH ×2 (09:10→21:41)
[2019-12-09] MEDS: VALSARTAN 160 MG TABLET PO SCH (09:11)
[2019-12-09] MEDS: METOPROLOL SUCCINATE 25 MG TAB.SR.24H PO SCH ×2 (09:11→21:41)
[2019-12-09] MEDS: FUROSEMIDE INJ/PF 100 MG/10 ML SDV IV SCH ×2 (09:11→17:32)
--- NOTE | 2019-12-09 09:25 | EKG REPORT ---
SEVERITY:- ABNORMAL ECG - ATRIAL FIBRILLATION NONSPECIFIC IVCD WITH LAD LVH WITH SECONDARY REPOLARIZATION ABNORMALITY PROBABLE INFERIOR INFARCT, OLD ANTERIOR INFARCT, OLD : Confirmed by: Laura Ramires 09-Dec-2019 09:24:44
--- NOTE | 2019-12-09 09:43 | PDOC PROGRESS REPORT ---
Subjective Progress Note for:: 12/09/19 Subjective:: Patient states that she feels better today. Denies any palpitation. Shortness of breath feels better at rest but has not ambulated much. Reason For Visit: AFIB RVR, CHF Physical Exam Vital Signs: Temp Pulse Resp BP Pulse Ox 97.4 F 83 20 153/84 H 92 12/09/19 08:41 12/09/19 08:41 12/09/19 08:41 12/09/19 08:41 12/09/19 08:41 Intake & Output 12/08/19 12/09/19 12/10/19 06:59 06:59 06:59 Intake Total 1051 Output Total 1050 Balance 1 Weight 81.4 kg General appearance: PRESENT: no acute distress, cooperative Neck exam: ABSENT: JVD Respiratory exam: PRESENT: crackles, unlabored. ABSENT: tachypnea, wheezes Cardiovascular exam: PRESENT: irregular rhythm, +S1, +S2. ABSENT: tachycardia GI/Abdominal exam: PRESENT: normal bowel sounds, soft. ABSENT: rebound, rigid, tenderness Extremities exam: PRESENT: pedal edema, +2 edema - Bilateral lower extremity Neurological exam: PRESENT: alert, awake, oriented to person, oriented to place, oriented to time Results Laboratory Results: 12/09/19 04:40 12/09/19 04:40 12/08/19 12/08/19 12/09/19 13:05 13:05 04:40 WBC 8.4 9.7 RBC 4.60 4.40 Hgb 12.1 11.3 L Hct 36.5 34.4 L MCV 79 L 78 L MCH 26.3 L 25.6 L MCHC 33.1 32.7 RDW 16.1 H 15.4 H Plt Count 214 195 Seg Neutrophils % Not Reportable 71.6 Sodium 132.6 L Potassium 4.9 Chloride 94 L Carbon Dioxide 27 Anion Gap 12 BUN 21 H Creatinine 0.95 Est GFR ( Amer) > 60 Glucose 272 H Calcium 8.7 Phosphorus Magnesium Total Bilirubin 1.3 AST 35 Alkaline Phosphatase 125 Total Protein 7.3 Albumin 3.7 TSH 12/09/19 12/09/19 04:40 04:40 WBC RBC Hgb Hct MCV MCH MCHC RDW Plt Count Seg Neutrophils % Sodium 131.6 L Potassium 4.1 Chloride 95 L Carbon Dioxide 27 Anion Gap 10 BUN 22 H Creatinine 1.03 Est GFR ( Amer) > 60 Glucose 146 H Calcium 8.4 Phosphorus 3.6 Magnesium 2.0 Total Bilirubin AST Alkaline Phosphatase Total Protein Albumin TSH 3.57 12/08/19 12/08/19 13:05 16:52 CK-MB (CK-2) 4.49 Troponin I 0.021 0.024 NT-Pro-B Natriuret Pep [id number] H Impressions: Chest X-Ray 12/08/19 12:51 IMPRESSION: CHF. Assessment and Plan - Diagnosis (1) Atrial fibrillation with RVR Is this a current diagnosis for this admission?: Yes Plan: Cannot specify if paroxysmal or persistent. New onset A. fib. Discontinued Cardizem drip and p.o. given HFrEF. Started on Toprol-XL twice daily. CHADSVASC score of 5 --started on Eliquis Elevated troponin-likely secondary to tachyarrhythmia. Trend is flat. ACS unlikely. (2) Acute CHF (congestive heart failure) Qualifiers: Heart failure type: combined systolic and diastolic Qualified Code(s): I50.41 - Acute combined systolic (congestive) and diastolic (congestive) heart failure Is this a current diagnosis for this admission?: Yes Plan: BNP significantly elevated, chest x-ray showing increased vascular congestion, crackles on exam. New onset. Echocardiogram showing EF 35 to 40%, grade 2 DD, estimated pulmonary systolic pressure of 50 to 60 mmHg, moderate MR and AR, moderate to severe TR Cardiology following Lasix IV 60 mg twice daily with monitoring of strict I's and O's and fluid & salt restriction. Valsartan. (3) Diabetes mellitus type 2 in obese Is this a current diagnosis for this admission?: Yes Plan: Continue metformin. Sliding scale insulin and Accu-Cheks. ADA diet (4) Hypertension Qualifiers: Hypertension type: essential hypertension Qualified Code(s): I10 - Essential (primary) hypertension Is this a current diagnosis for this admission?: Yes Plan: Continue valsartan 320mg daily. Will discontinue hydrochlorothiazide while starting Lasix and discontinue amlodipine given systolic CHF & leg swelling. If BP starts to rise, can add Imdur or hydralazine or uptitrate beta-halima. (5) Hypothyroidism Qualifiers: Hypothyroidism type: unspecified Qualified Code(s): E03.9 - Hypothyroidism, unspecified Is this a current diagnosis for this admission?: Yes Plan: TSH within normal limits. Continue Synthroid. - Time Time Spent with patient: 15-24 minutes
[2019-12-09] MEDS ORDERED: FUROSEMIDE INJ/PF 40 MG/4 ML SDV IV SCH ×2 (10:00)
[2019-12-09] MEDS ORDERED: ENOXAPARIN SODIUM INJ 40 MG/0.4 ML DISP.SYRIN SUBCUT SCH (10:00)
[2019-12-09] MEDS ORDERED: AMLODIPINE BESYLATE 10 MG TABLET PO SCH (10:00)
[2019-12-09] MEDS ORDERED: HYDROCHLOROTHIAZIDE 25 MG TABLET PO SCH (10:00)
--- NOTE | 2019-12-09 10:32 | PDOC CONSULTATION ---
Consultation Consult Date: 12/08/19 Attending physician:: DONOVAN DARBY Provider Consulted: ELDON BOSTON Consult reason:: CHF, atrial fibrillation History of Present Illness Admission Date/PCP: 12/08/19 15:25 JOURDAN CALZADA MD Patient complains of: Shortness of breath History of Present Illness: Patient was seen yesterday at around 6:30 PM. Case was discussed with Dr. DARBY, same time. A dictation is being performed today. Management plans was discussed yesterday. ALICIA DAMON is a 84 year old female with a history of hypertension, type 2 diabetes mellitus, hypothyroidism, who presents with complaints of increased leg swelling going on for the past 10 days. Patient also admits to mild dyspnea on exertion. Denies any history of A. fib or congestive heart failure. Admits to orthopnea. Denies PND. Denies any chest pain, rhinorrhea, fever, chills. Denies sick contacts. Denies any out of state travels since August 2019. Denies any exposures to any known sick persons. She does occasionally get food from restaurants otherwise does not do much of any outing. Patient was noted to be A. fib RVR in the 130s in the ER and placed on Cardizem drip. Referred to hospitalist service for admission. This history obtained by the hospitalist was reviewed. Patient has been experiencing increased shortness of breath and pedal edema for about 2 weeks. Patient therefore came to the emergency department for further evaluation and was admitted from there. Patient denied any chest pain or chest discomfort any sort. Patient denies any palpitations but was noted to have atrial fibrillation. Patient denies ever having any knowledge of having atrial fibrillation in the past. She does not feel the palpitations. Patient was noted to have increased heart rate response to atrial fibrillation and was given Cardizem drip which was subsequently stopped by the time I saw the patient. A 2D echo ordered was reviewed. It showed depressed LVEF. Past Medical History Cardiac Medical History: Reports: Hyperlipidema, Hypertension Endocrine Medical History: Reports: Diabetes Mellitus Type 2 Past Surgical History Past Surgical History: Reports: Hysterectomy Social History Information Source: Patient Lives with: Alone Smoking Status: Never Smoker Electronic Cigarette use?: No Frequency of Alcohol Use: None Hx Recreational Drug Use: No Drugs: None Hx Prescription Drug Abuse: No - Advance Directive Resuscitation Status: Full Code Family History Family History: DM, Hypertension Parental Family History Reviewed: Yes Children Family History Reviewed: Yes Sibling(s) Family History Reviewed.: Yes Medication/Allergy Home Medications: Amlodipine Besylate [Norvasc 10 mg Tablet] 10 mg PO DAILY 12/08/19 Atorvastatin Calcium [Lipitor 40 mg Tablet] 40 mg PO QHS 12/08/19 Levothyroxine Sodium [Synthroid 0.05 mg Tablet] 0.05 mg PO Q6AM 12/08/19 Metformin HCl 0.5 tab PO BID 12/08/19 Valsartan/Hydrochlorothiazide [Valsartan-Hctz 320-25 mg Tab] 1 tab PO DAILY 12/08/19 Allergies/Adverse Reactions: quinine [Quinine] Allergy (Verified 07/20/11 10:19) Dizziness Review of Systems Constitutional: ABSENT: chills, fever(s), headache(s), weight gain, weight loss Eyes: ABSENT: visual disturbances Ears: ABSENT: hearing changes Cardiovascular: PRESENT: dyspnea on exertion, edema, orthropnea. ABSENT: chest pain, palpitations Respiratory: ABSENT: cough, hemoptysis Gastrointestinal: ABSENT: abdominal pain, constipation, diarrhea, hematemesis, hematochezia, nausea, vomiting Genitourinary: ABSENT: dysuria, hematuria Musculoskeletal: ABSENT: joint swelling Integumentary: ABSENT: rash, wounds Neurological: ABSENT: abnormal gait, abnormal speech, confusion, dizziness, focal weakness, syncope Psychiatric: ABSENT: anxiety, depression, homidical ideation, suicidal ideation Endocrine: ABSENT: cold intolerance, heat intolerance, polydipsia, polyuria Hematologic/Lymphatic: ABSENT: easy bleeding, easy bruising Physical Exam Vital Signs: Temp Pulse Resp BP Pulse Ox 97.4 F 83 20 153/84 H 92 12/09/19 08:41 12/09/19 08:41 12/09/19 08:41 12/09/19 08:41 12/09/19 08:41 Intake & Output 12/08/19 12/09/19 12/10/19 06:59 06:59 06:59 Intake Total 1051 Output Total 1050 Balance 1 Weight 81.4 kg General appearance: PRESENT: no acute distress, well-developed, well-nourished Head exam: PRESENT: atraumatic, normocephalic Eye exam: PRESENT: conjunctiva pink, EOMI, PERRLA. ABSENT: scleral icterus Ear exam: PRESENT: normal external ear exam Mouth exam: PRESENT: moist, tongue midline Neck exam: ABSENT: carotid bruit, JVD, lymphadenopathy, thyromegaly Respiratory exam: PRESENT: tachypnea - Diminished breath sounds and dullness both bases.. ABSENT: rales, rhonchi, wheezes Cardiovascular exam: PRESENT: RRR. ABSENT: diastolic murmur, rubs, systolic murmur Pulses: PRESENT: normal dorsalis pedis pul, +2 pedal pulses bilateral Vascular exam: PRESENT: normal capillary refill GI/Abdominal exam: PRESENT: normal bowel sounds, soft. ABSENT: distended, g uarding, mass, organolmegaly, rebound, tenderness Rectal exam: PRESENT: deferred Extremities exam: PRESENT: full ROM. ABSENT: calf tenderness, clubbing, pedal edema Neurological exam: PRESENT: alert, awake, oriented to person, oriented to place, oriented to time, oriented to situation, CN II-XII grossly intact. ABSENT: mo tor sensory deficit Psychiatric exam: PRESENT: appropriate affect, normal mood. ABSENT: homicidal ideation, suicidal ideation Skin exam: PRESENT: dry, intact, warm. ABSENT: cyanosis, rash Results Laboratory Results: 12/09/19 04:40 12/09/19 04:40 12/08/19 12/08/19 12/09/19 13:05 13:05 04:40 WBC 8.4 9.7 RBC 4.60 4.40 Hgb 12.1 11.3 L Hct 36.5 34.4 L MCV 79 L 78 L MCH 26.3 L 25.6 L MCHC 33.1 32.7 RDW 16.1 H 15.4 H Plt Count 214 195 Seg Neutrophils % Not Reportable 71.6 Sodium 132.6 L Potassium 4.9 Chloride 94 L Carbon Dioxide 27 Anion Gap 12 BUN 21 H Creatinine 0.95 Est GFR ( Amer) > 60 Glucose 272 H Calcium 8.7 Phosphorus Magnesium Total Bilirubin 1.3 AST 35 Alkaline Phosphatase 125 Total Protein 7.3 Albumin 3.7 TSH 12/09/19 12/09/19 04:40 04:40 WBC RBC Hgb Hct MCV MCH MCHC RDW Plt Count Seg Neutrophils % Sodium 131.6 L Potassium 4.1 Chloride 95 L Carbon Dioxide 27 Anion Gap 10 BUN 22 H Creatinine 1.03 Est GFR ( Amer) > 60 Glucose 146 H Calcium 8.4 Phosphorus 3.6 Magnesium 2.0 Total Bilirubin AST Alkaline Phosphatase Total Protein Albumin TSH 3.57 12/08/19 12/08/19 13:05 16:52 CK-MB (CK-2) 4.49 Troponin I 0.021 0.024 NT-Pro-B Natriuret Pep [id number] H EKG Comments: Atrial fibrillation and left bundle branch block. Impressions: Chest X-Ray 12/08/19 12:51 IMPRESSION: CHF. Assessment & Plan - Diagnosis (1) Acute CHF (congestive heart failure) Qualifiers: Heart failure type: combined systolic and diastolic Qualified Code(s): I50.41 - Acute combined systolic (congestive) and diastolic (congestive) heart failure Is this a current diagnosis for this admission?: Yes (2) Atrial fibrillation with RVR Is this a current diagnosis for this admission?: Yes (3) Diabetes mellitus type 2 in obese Is this a current diagnosis for this admission?: Yes (4) Hypertension Qualifiers: Hypertension type: essential hypertension Qualified Code(s): I10 - Essential (primary) hypertension Is this a current diagnosis for this admission?: Yes (5) Hypothyroidism Qualifiers: Hypothyroidism type: unspecified Qualified Code(s): E03.9 - Hypothyroidism, unspecified Is this a current diagnosis for this admission?: Yes - Notes Notes: Acute CHF: Possibly precipitated by atrial fibrillation. By 2D echo patient is noted to have significantly depressed LVEF and moderate valvular regurgitation involving the mitral and the aortic valve as well as moderate to severe tricuspid regurgitation. This led us to switch patient from Cardizem to beta- halima. May consider adding digoxin if needed for rate control. Once blood pressure stabilizes, may consider switch to Entresto therapy. Atrial fibrillation with rapid ventricular response: Feel that atrial fibril lation could well be chronic. Patient does not feel palpitations. At this point recommend rate control and chronic anticoagulation strategy. Patient not having symptoms of palpitations. Hypertension: Blood pressure goal should be 130/85 or less in this patient with CHF and also depressed LVEF. Patient will benefit from KENDRA inhibitor/SNRI agent/ARB. Beta-halima such as carvedilol, bisoprolol and metoprolol succinate which has been studied in this situation. Diabetes: Patient is well managed. 2D echo suggest presence of CAD therefore would recommend high potency statin therapy.. - Time Time Spent: 30 to 50 Minutes Medications reviewed and adjusted accordingly: Yes
[2019-12-09] MEDS: SACUBITRIL/VALSARTAN 49 MG/51 MG TABLET PO SCH (17:32)
[2019-12-09] MEDS: ATORVASTATIN CALCIUM 40 MG TABLET PO SCH (21:41)
--- NOTE | 2019-12-10 00:08 | PDOC PROGRESS REPORT ---
Subjective Progress Note for:: 12/09/19 Subjective:: Patient seems to be doing better with gradual improvement. Pt is denying any chest arm or neck discomfort. Patient denying any PND, orthopnea. Patient denied any sustained palpitations, dizziness, syncope, near syncope. Patient denying any fever chills. Patient denying any other significant discomfort. Still has pedal edema and shortness of breath on minimal exertion. Patient is maintaining atrial fibrillation, heart rate well controlled. Review of systems: Rest review of systems negative. Medications: Medications have been reviewed. Reason For Visit: AFIB RVR, CHF Physical Exam Vital Signs: Temp Pulse Resp BP Pulse Ox 97.7 F 78 18 122/59 L 92 12/09/19 19:55 12/09/19 19:55 12/09/19 19:55 12/09/19 19:55 12/09/19 19:55 Intake & Output 12/08/19 12/09/19 12/10/19 06:59 06:59 06:59 Intake Total 1051 931 Output Total 1050 600 Balance 1 331 Weight 81.4 kg General appearance: PRESENT: no acute distress, well-developed, well-nourished Head exam: PRESENT: atraumatic, normocephalic Eye exam: PRESENT: conjunctiva pink, EOMI, PERRLA. ABSENT: scleral icterus Ear exam: PRESENT: normal external ear exam Mouth exam: PRESENT: moist, tongue midline Neck exam: PRESENT: JVD - 12 cm. ABSENT: carotid bruit, lymphadenopathy, thyromegaly Respiratory exam: PRESENT: clear to auscultation oswaldo. ABSENT: rales, rhonchi, wheezes Cardiovascular exam: PRESENT: irregular rhythm, +S1, +S2, systolic murmur - 2/6 ejection systolic murmur aortic area. ABSENT: diastolic murmur, rubs Pulses: PRESENT: normal dorsalis pedis pul Vascular exam: PRESENT: normal capillary refill GI/Abdominal exam: PRESENT: normal bowel sounds, soft. ABSENT: distended, guar ding, mass, organolmegaly, rebound, tenderness Rectal exam: PRESENT: deferred Extremities exam: PRESENT: full ROM, +2 edema - Bilateral. ABSENT: calf tenderness, clubbing, pedal edema Neurological exam: PRESENT: alert, awake, oriented to person, oriented to place, oriented to time, oriented to situation, CN II-XII grossly intact. ABSENT: motor sensory deficit Psychiatric exam: PRESENT: appropriate affect, normal mood. ABSENT: homicidal ideation, suicidal ideation Skin exam: PRESENT: dry, intact, warm. ABSENT: cyanosis, rash Results Laboratory Results: 12/09/19 04:40 12/09/19 04:40 12/09/19 12/09/19 12/09/19 04:40 04:40 04:40 WBC 9.7 RBC 4.40 Hgb 11.3 L Hct 34.4 L MCV 78 L MCH 25.6 L MCHC 32.7 RDW 15.4 H Plt Count 195 Seg Neutrophils % 71.6 Sodium 131.6 L Potassium 4.1 Chloride 95 L Carbon Dioxide 27 Anion Gap 10 BUN 22 H Creatinine 1.03 Est GFR ( Amer) > 60 Glucose 146 H Calcium 8.4 Phosphorus 3.6 Magnesium 2.0 TSH 3.57 12/08/19 12/08/19 13:05 16:52 CK-MB (CK-2) 4.49 Troponin I 0.021 0.024 NT-Pro-B Natriuret Pep [id number] H EKG Comments: 2D echo results reviewed with the patient. EKG results reviewed. Impressions: Chest X-Ray 12/08/19 12:51 IMPRESSION: CHF. Assessment & Plan - Diagnosis (1) Acute CHF (congestive heart failure) Qualifiers: Heart failure type: combined systolic and diastolic Qualified Code(s): I50.41 - Acute combined systolic (congestive) and diastolic (congestive) heart failure Is this a current diagnosis for this admission?: Yes (2) Atrial fibrillation with RVR Is this a current diagnosis for this admission?: Yes (3) Diabetes mellitus type 2 in obese Is this a current diagnosis for this admission?: Yes (4) Hypertension Qualifiers: Hypertension type: essential hypertension Qualified Code(s): I10 - Essential (primary) hypertension Is this a current diagnosis for this admission?: Yes (5) Hypothyroidism Qualifiers: Hypothyroidism type: unspecified Qualified Code(s): E03.9 - Hypothyroidism, unspecified Is this a current diagnosis for this admission?: Yes - Notes Notes: Patient continues to be in CHF. Diuretic dose increased. Today patient was placed on Entresto. Dose will be gradually escalated as needed. Agree with other con current management which is being expertly carried out by the hospitalist. Management plans discussed with the hospitalist. Patient is very complex with multiple medical issues. She does have underlying CAD based on wall motion abnormalities on the echocardiogram. However currently without any angina symptoms. Do not feel any ischemia evaluation indicated at this time but should be considered as an outpatient. It may include a viability study. - Time Time with patient: Greater than 35 minutes Medications reviewed and adjusted accordingly: Yes
[2019-12-10] MEDS: LEVOTHYROXINE SODIUM 0.05 MG TABLET PO SCH (05:31)
[2019-12-10 06:04] LABS: ANION GAP 10 (5-19); BLOOD UREA NITROGEN 21 mg/dL (7-20); CALCIUM 8.5 mg/dL (8.4-10.2); CARBON DIOXIDE 33 mmol/L (22-30); CHLORIDE 89 mmol/L (98-107); GLUCOSE 99 mg/dL (75-110); POTASSIUM 3.6 mmol/L (3.6-5.0)
[2019-12-10] MEDS: INSULIN LISPRO 100 UNIT/ML 3 ML VIAL SUBCUT SCH ×4 (08:11→22:12)
--- NOTE | 2019-12-10 08:28 | EKG REPORT ---
SEVERITY:- ABNORMAL ECG - ATRIAL FIBRILLATION NONSPECIFIC IVCD WITH LAD LVH WITH SECONDARY REPOLARIZATION ABNORMALITY PROBABLE INFERIOR INFARCT, OLD : Confirmed by: Laura Ramires 10-Dec-2019 08:27:26
[2019-12-10] MEDS: APIXABAN 2.5 MG TABLET PO SCH ×2 (09:07→22:09)
[2019-12-10] MEDS: METOPROLOL SUCCINATE 25 MG TAB.SR.24H PO SCH ×2 (09:07→22:09)
[2019-12-10] MEDS: FUROSEMIDE INJ/PF 100 MG/10 ML SDV IV SCH (09:08)
[2019-12-10] MEDS: SACUBITRIL/VALSARTAN 49 MG/51 MG TABLET PO SCH (09:08)
[2019-12-10] MEDS: METFORMIN HCL 850 MG TABLET PO SCH ×2 (09:08→17:18)
[2019-12-10] MEDS: TORSEMIDE 20 MG TABLET PO SCH (13:40)
--- NOTE | 2019-12-10 15:02 | PDOC PROGRESS REPORT ---
Subjective Progress Note for:: 12/10/19 Subjective:: The patient is resting comfortably in bed. She denies any acute complaints including shortness of breath, palpitations, lightheadedness or dizziness. She does not report any chest pain. She has already been seen by cardiology and some changes in medications have been made. Reason For Visit: AFIB RVR, CHF Physical Exam Vital Signs: Temp Pulse Resp BP Pulse Ox 97.4 F 85 16 123/45 L 94 12/10/19 07:27 12/10/19 14:00 12/10/19 07:27 12/10/19 07:27 12/10/19 07:27 Intake & Output 12/09/19 12/10/19 12/11/19 06:59 06:59 06:59 Intake Total 1051 1241 260 Output Total 1050 2525 300 Balance 1 -1284 -40 Weight 81.4 kg 84.3 kg General appearance: PRESENT: no acute distress, cooperative, well-developed Head exam: PRESENT: atraumatic, normocephalic Ear exam: PRESENT: normal external ear exam. ABSENT: bleeding, drainage Mouth exam: PRESENT: moist, tongue midline Respiratory exam: PRESENT: clear to auscultation oswaldo - Anteriorly, symmetrical, unlabored. ABSENT: rales, rhonchi, tachypnea, wheezes Cardiovascular exam: PRESENT: irregular rhythm, systolic murmur - 3/6 GI/Abdominal exam: PRESENT: normal bowel sounds, soft. ABSENT: distended, guarding, tenderness Rectal exam: PRESENT: deferred Neurological exam: PRESENT: alert, awake, oriented to person, oriented to place, oriented to time, oriented to situation, CN II-XII grossly intact. ABSENT: altered Psychiatric exam: PRESENT: appropriate affect. ABSENT: agitated, anxious Focused psych exam: ABSENT: delusional, restlessness Skin exam: PRESENT: dry, normal color, warm. ABSENT: rash Results Laboratory Results: 12/09/19 04:40 12/10/19 04:50 12/10/19 04:50 Sodium 132.0 L Potassium 3.6 Chloride 89 L Carbon Dioxide 33 H Anion Gap 10 BUN 21 H Creatinine 1.10 Est GFR ( Amer) 57 L Glucose 99 Calcium 8.5 Magnesium 1.8 12/08/19 12/08/19 13:05 16:52 CK-MB (CK-2) 4.49 Troponin I 0.021 0.024 NT-Pro-B Natriuret Pep [id number] H Impressions: Chest X-Ray 12/08/19 12:51 IMPRESSION: CHF. Assessment and Plan - Diagnosis (1) Atrial fibrillation with RVR Is this a current diagnosis for this admission?: Yes Plan: Cannot specify if paroxysmal or persistent. New onset A. fib. Discontinued Cardizem drip and p.o. given HFrEF. Started on Toprol-XL twice daily. CHADSVASC score of 5 --started on Eliquis Elevated troponin-likely secondary to tachyarrhythmia. Trend is flat. ACS unlikely. 12/10/2019 Currently on Eliquis as well as metoprolol. Reasonable rate control. Continue telemetry monitoring. (2) Acute on chronic combined systolic and diastolic congestive heart failure Is this a current diagnosis for this admission?: Yes Plan: 12/10/2019 The patient had an echocardiogram during this admission. The ejection fraction is estimated at 35 to 40% with grade 2/4 diastolic dysfunction. She also has tricuspid regurgitation and moderate pulmonary hypertension. The patient has been started on Entresto and the diuretic has been changed to torsemide. She remains on beta-halima as well. Continue to monitor intake and output. Dr. Ramires, the patient's database design analyst, is following and appreciate his input. (3) Hyperglycemia due to type 2 diabetes mellitus Qualifiers: Diabetes mellitus intermediate school teacher insulin use: without fpc use Qualified Code(s): E11.65 - Type 2 diabetes mellitus with hyperglycemia Is this a current diagnosis for this admission?: Yes Plan: December 10, 2019 Accu-Cheks exhibit reasonable control. Continue current regimen. (4) Hypertension Qualifiers: Hypertension type: essential hypertension Qualified Code(s): I10 - Essential (primary) hypertension Is this a current diagnosis for this admission?: Yes Plan: Continue valsartan 320mg daily. Will discontinue hydrochlorothiazide while starting Lasix and discontinue amlodipine given systolic CHF & leg swelling. If BP starts to rise, can add Imdur or hydralazine or uptitrate beta-halima. 12/10/2019 Reasonable control. Continue metoprolol. The patient has also been started on Entresto and torsemide. Continue to monitor vital signs. (5) Hypothyroidism Qualifiers: Hypothyroidism type: unspecified Qualified Code(s): E03.9 - Hypothyroidism, unspecified Is this a current diagnosis for this admission?: Yes Plan: TSH within normal limits. Continue Synthroid. 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 Continue current cardiac treatment plan as outlined above. (7) Pulmonary hypertension Is this a current diagnosis for this admission?: Yes Plan: 12/10/2019 As diagnosed by echocardiogram. Continue current cardiac regimen. - Time Time Spent with patient: 15-24 minutes Medications reviewed and adjusted accordingly: Yes Anticipated discharge: Home
--- NOTE | 2019-12-10 18:38 | PDOC PROGRESS REPORT ---
Subjective Progress Note for:: 12/10/19 Subjective:: Progress report for 12/10/2019 Patient seems to be doing better with gradual improvement. Pt is denying any chest arm or neck discomfort. Patient denying any PND, orthopnea. Patient denied any sustained palpitations, dizziness, syncope, near syncope. Patient denying any fever chills. Patient denying any other significant discomfort. Patient has not ambulated much. Patient is maintaining atrial fibrillation, heart rate well controlled. Review of systems: Rest review of systems negative. Medications: Medications have been reviewed. Reason For Visit: AFIB RVR, CHF Physical Exam Vital Signs: Temp Pulse Resp BP Pulse Ox 97.4 F 77 16 123/45 L 94 12/10/19 07:27 12/10/19 07:27 12/10/19 07:27 12/10/19 07:27 12/10/19 07:27 Intake & Output 12/09/19 12/10/19 12/11/19 06:59 06:59 06:59 Intake Total 1051 1241 Output Total 1050 2525 Balance 1 -1284 Weight 81.4 kg 84.3 kg General appearance: PRESENT: no acute distress, well-developed, well-nourished Head exam: PRESENT: atraumatic, normocephalic Eye exam: PRESENT: conjunctiva pink, EOMI, PERRLA. ABSENT: scleral icterus Ear exam: PRESENT: normal external ear exam Mouth exam: PRESENT: moist, tongue midline Neck exam: ABSENT: carotid bruit, JVD, lymphadenopathy, thyromegaly Respiratory exam: PRESENT: clear to auscultation oswaldo. ABSENT: rales, rhonchi, wheezes Cardiovascular exam: PRESENT: RRR. ABSENT: diastolic murmur, rubs, systolic murmur Pulses: PRESENT: normal dorsalis pedis pul Vascular exam: PRESENT: normal capillary refill GI/Abdominal exam: PRESENT: normal bowel sounds, soft. ABSENT: distended, guarding, mass, organolmegaly, rebound, tenderness Rectal exam: PRESENT: deferred Extremities exam: PRESENT: full ROM, +1 edema. ABSENT: calf tenderness, clubbing, pedal edema Neurological exam: PRESENT: alert, awake, oriented to person, oriented to place, oriented to time, oriented to situation, CN II-XII grossly intact. ABSENT: motor sensory deficit Psychiatric exam: PRESENT: appropriate affect, normal mood. ABSENT: homicidal ideation, suicidal ideation Skin exam: PRESENT: dry, intact, warm. ABSENT: cyanosis, rash Results Laboratory Results: 12/09/19 04:40 12/10/19 04:50 12/10/19 04:50 Sodium 132.0 L Potassium 3.6 Chloride 89 L Carbon Dioxide 33 H Anion Gap 10 BUN 21 H Creatinine 1.10 Est GFR ( Amer) 57 L Glucose 99 Calcium 8.5 Magnesium 1.8 12/08/19 12/08/19 13:05 16:52 CK-MB (CK-2) 4.49 Troponin I 0.021 0.024 NT-Pro-B Natriuret Pep [id number] H EKG Comments: Shows atrial fibrillation heart rate reasonably well controlled. Left bundle branch block noted. Impressions: Chest X-Ray 12/08/19 12:51 IMPRESSION: CHF. Assessment & Plan - Diagnosis (1) Acute CHF (congestive heart failure) Qualifiers: Heart failure type: combined systolic and diastolic Qualified Code(s): I50.41 - Acute combined systolic (congestive) and diastolic (congestive) heart failure Is this a current diagnosis for this admission?: Yes (2) Atrial fibrillation with RVR Is this a current diagnosis for this admission?: Yes (3) Diabetes mellitus type 2 in obese Is this a current diagnosis for this admission?: Yes (4) Hypertension Qualifiers: Hypertension type: essential hypertension Qualified Code(s): I10 - Essential (primary) hypertension Is this a current diagnosis for this admission?: Yes (5) Hypothyroidism Qualifiers: Hypothyroidism type: unspecified Qualified Code(s): E03.9 - Hypothyroidism, unspecified Is this a current diagnosis for this admission?: Yes - Notes Notes: Acute on chronic CHF: Improved. Patient seems compensated. At this point will switch from IV Lasix to p.o. diuretics. Will also adjust Entresto therapy to maximum dose. This changes were performed. Patient was placed on Demadex. Atrial fibrillation with rapid ventricular response: Possibly chronic. Continue with rate control and chronic anticoagulation strategy. Diabetes: This is being well managed. Hypertension: Blood pressure goal should be 135/85 or less in CHF and cardiomyopathy patient. We are trying to achieve this. Valvular heart disease: Vasodilator therapy being recommended. Patient has mitral regurgitation and tricuspid regurgitation of at least moderate severity. Cardiomyopathy: Ischemic. Possibly contribution of chronic atrial fibrillation. Patient being adequately managed and medical management being optimized. Patient will benefit from close cardiology follow-up. I will be happy to provi de this. Transfer - Time Time with patient: Greater than 35 minutes - More than 50% of the time spent coordinating care, discussing management plans with involved caregivers. Management plans discussed with involved personnels. Medical decision making was of moderate to high complexity, patient's has multiple comorbidities. Medications reviewed and adjusted accordingly: Yes
[2019-12-10] MEDS: ATORVASTATIN CALCIUM 40 MG TABLET PO SCH (22:09)
[2019-12-10] MEDS: SACUBITRIL/VALSARTAN 97 MG/103 MG TABLET PO SCH (22:10)
[2019-12-11] MEDS: LEVOTHYROXINE SODIUM 0.05 MG TABLET PO SCH (05:46)
[2019-12-11] MEDS: INSULIN LISPRO 100 UNIT/ML 3 ML VIAL SUBCUT SCH ×4 (08:58→21:56)
[2019-12-11] MEDS: METOPROLOL SUCCINATE 25 MG TAB.SR.24H PO SCH ×3 (09:34→21:56)
[2019-12-11] MEDS: APIXABAN 2.5 MG TABLET PO SCH ×2 (09:34→21:55)
[2019-12-11] MEDS: METFORMIN HCL 850 MG TABLET PO SCH ×2 (09:34→17:11)
[2019-12-11] MEDS: TORSEMIDE 20 MG TABLET PO SCH (09:34)
--- NOTE | 2019-12-11 09:35 | EKG REPORT ---
SEVERITY:- ABNORMAL ECG - ATRIAL FIBRILLATION NONSPECIFIC IVCD WITH LAD CONSIDER LEFT VENTRICULAR HYPERTROPHY : Confirmed by: Laura Ramires 11-Dec-2019 09:34:46
--- NOTE | 2019-12-11 09:53 | PDOC PROGRESS REPORT ---
Subjective Progress Note for:: 12/11/19 Subjective:: Patient still exhibits borderline tachycardia. She is typically higher early in the morning before her morning medication. She states that her breathing is comfortable and she otherwise feels good. She is asking when she can go home. Reason For Visit: AFIB RVR, CHF Physical Exam Vital Signs: Temp Pulse Resp BP Pulse Ox 97.7 F 81 16 141/68 H 95 12/11/19 07:00 12/11/19 07:00 12/11/19 07:00 12/11/19 07:00 12/11/19 07:00 Intake & Output 12/10/19 12/11/19 12/12/19 06:59 06:59 06:59 Intake Total 1241 1077 Output Total 2525 3300 Balance -1284 -2223 Weight 84.3 kg 78.7 kg General appearance: PRESENT: no acute distress, cooperative, well-developed Head exam: PRESENT: atraumatic, normocephalic Ear exam: PRESENT: normal external ear exam. ABSENT: bleeding, drainage Mouth exam: PRESENT: moist, tongue midline Teeth exam: PRESENT: poor dentation Respiratory exam: PRESENT: clear to auscultation oswaldo, symmetrical, unlabored. ABSENT: rales, rhonchi, tachypnea, wheezes Cardiovascular exam: PRESENT: irregular rhythm GI/Abdominal exam: PRESENT: normal bowel sounds, soft. ABSENT: distended, guarding, tenderness Rectal exam: PRESENT: deferred Musculoskeletal exam: PRESENT: ambulatory Neurological exam: PRESENT: alert, awake, oriented to person, oriented to place, oriented to time, oriented to situation, CN II-XII grossly intact Psychiatric exam: PRESENT: appropriate affect, normal mood. ABSENT: agitated, anxious Focused psych exam: ABSENT: delusional, restlessness Results Laboratory Results: 12/09/19 04:40 12/10/19 04:50 12/08/19 12/08/19 13:05 16:52 CK-MB (CK-2) 4.49 Troponin I 0.021 0.024 NT-Pro-B Natriuret Pep [id number] H Impressions: Chest X-Ray 12/08/19 12:51 IMPRESSION: CHF. Assessment and Plan - Diagnosis (1) Atrial fibrillation with RVR Is this a current diagnosis for this admission?: Yes Plan: Cannot specify if paroxysmal or persistent. New onset A. fib. Discontinued Cardizem ip and p.o. given HFrEF. Started on Toprol-XL twice daily. CHADSVASC score of 5 --started on Eliquis Elevated troponin-likely secondary to tachyarrhythmia. Trend is flat. ACS unlikely. 12/10/2019 Currently on Eliquis as well as metoprolol. Reasonable rate control. Continue telemetry monitoring. 12/11/2019 Metoprolol will be increased to every 8 hours to achieve slightly better rate control. Continue anticoagulation. (2) Acute on chronic combined systolic and diastolic congestive heart failure Is this a current diagnosis for this admission?: Yes Plan: 12/10/2019 The patient had an echocardiogram during this admission. The ejection fraction is estimated at 35 to 40% with grade 2/4 diastolic dysfunction. She also has tricuspid regurgitation and moderate pulmonary hypertension. The patient has been started on Entresto and the diuretic has been changed to torsemide. She remains on beta-halima as well. Continue to monitor intake and output. Dr. Ramires, the patient's electric blanket wirer, is following and appreciate his input. 12/11/[address] Ramires going to decrease her torsemide. The suggestion was 20 mg every other day. I will opt for 10 mg daily as there is less likely to be confusion with her dosing. (3) Hyperglycemia due to type 2 diabetes mellitus Qualifiers: Diabetes mellitus rn long term care insulin use: without rn long term care use Qualified Code(s): E11.65 - Type 2 diabetes mellitus with hyperglycemia Is this a current diagnosis for this admission?: Yes Plan: December 10, 2019 Accu-Cheks exhibit reasonable control. Continue current regimen. 12/11/2019 Remains under good control with current regimen (4) Hypertension Qualifiers: Hypertension type: essential hypertension Qualified Code(s): I10 - Essential (primary) hypertension Is this a current diagnosis for this admission?: Yes Plan: Continue valsartan 320mg daily. Will discontinue hydrochlorothiazide while s tarting Lasix and discontinue amlodipine given systolic CHF & leg swelling. If BP starts to rise, can add Imdur or hydralazine or uptitrate beta-halima. 12/10/2019 Reasonable control. Continue metoprolol. The patient has also been started on Entresto and torsemide. Continue to monitor vital signs. 12/11/2019 Medication changes as above (5) Hypothyroidism Qualifiers: Hypothyroidism type: unspecified Qualified Code(s): E03.9 - Hypothyroidism, unspecified Is this a current diagnosis for this admission?: Yes Plan: TSH within normal limits. Continue Synthroid. 12/10/2019 No change at this time (6) Tricuspid regurgitation Qualifiers: Cardiac valve disease etiology: etiology unspecified Qualified Code(s): I07.1 - Rheumatic tricuspid insufficiency Is this a current diagnosis for this admission?: Yes Plan: 12/10/2019 Diagnosed by echocardiogram during this admission. Continue current cardiac treatment plan as outlined above. (7) Pulmonary hypertension Is this a current diagnosis for this admission?: Yes Plan: 12/10/2019 As diagnosed by echocardiogram. Continue current cardiac regimen. - Time Time Spent with patient: 15-24 minutes Medications reviewed and adjusted accordingly: Yes Anticipated discharge: Home Within: within 48 hours
[2019-12-11] MEDS: SACUBITRIL/VALSARTAN 97 MG/103 MG TABLET PO SCH ×2 (10:53→21:58)
--- NOTE | 2019-12-11 18:39 | PDOC PROGRESS REPORT ---
Subjective Progress Note for:: 12/11/19 Subjective:: Progress report for 12/11/2019 Patient seems to be doing better with gradual improvement. Pt is denying any chest arm or neck discomfort. Patient denying any PND, orthopnea. Patient denied any sustained palpitations, dizziness, syncope, near syncope. Patient denying any fever chills. Patient denying any other significant discomfort. Patient had ambulated today in the hallway and did well. She did however get tired. Patient is maintaining atrial fibrillation, heart rate well controlled. Review of systems: Rest review of systems negative. Medications: Medications have been reviewed. Reason For Visit: AFIB RVR, CHF Physical Exam Vital Signs: Temp Pulse Resp BP Pulse Ox 97.9 F 83 12 105/52 L 93 12/11/19 11:23 12/11/19 11:23 12/11/19 11:23 12/11/19 11:23 12/11/19 11:23 Intake & Output 12/10/19 12/11/19 12/12/19 06:59 06:59 06:59 Intake Total 1241 1077 Output Total 2525 3300 Balance -1284 -2223 Weight 84.3 kg 78.7 kg General appearance: PRESENT: no acute distress, well-developed, well-nourished Head exam: PRESENT: atraumatic, normocephalic Eye exam: PRESENT: conjunctiva pink, EOMI, PERRLA. ABSENT: scleral icterus Ear exam: PRESENT: normal external ear exam Mouth exam: PRESENT: moist, tongue midline Neck exam: ABSENT: carotid bruit, JVD, lymphadenopathy, thyromegaly Respiratory exam: PRESENT: clear to auscultation oswaldo. ABSENT: rales, rhonchi, wheezes Cardiovascular exam: PRESENT: irregular rhythm, +S1, +S2. ABSENT: diastolic murmur, rubs, systolic murmur Pulses: PRESENT: normal dorsalis pedis pul Vascular exam: PRESENT: normal capillary refill GI/Abdominal exam: PRESENT: normal bowel sounds, soft. ABSENT: distended, gua rding, mass, organolmegaly, rebound, tenderness Rectal exam: PRESENT: deferred Extremities exam: PRESENT: full ROM, pedal edema, +1 edema. ABSENT: calf tenderness, clubbing Neurological exam: PRESENT: alert, awake, oriented to person, oriented to place, oriented to time, oriented to situation, CN II-XII grossly intact. ABSENT: motor sensory deficit Psychiatric exam: PRESENT: appropriate affect, normal mood. ABSENT: homicidal ideation, suicidal ideation Skin exam: PRESENT: dry, intact, warm. ABSENT: cyanosis, rash Results Laboratory Results: 12/09/19 04:40 12/10/19 04:50 12/08/19 12/08/19 13:05 16:52 CK-MB (CK-2) 4.49 Troponin I 0.021 0.024 NT-Pro-B Natriuret Pep [id number] H EKG Comments: Telemetry shows atrial fibrillation with left bundle branch block Impressions: Chest X-Ray 12/08/19 12:51 IMPRESSION: CHF. Assessment & Plan - Diagnosis (1) Acute CHF (congestive heart failure) Qualifiers: Heart failure type: combined systolic and diastolic Qualified Code(s): I50.41 - Acute combined systolic (congestive) and diastolic (congestive) heart failure Is this a current diagnosis for this admission?: Yes (2) Atrial fibrillation with RVR Is this a current diagnosis for this admission?: Yes (3) Diabetes mellitus type 2 in obese Is this a current diagnosis for this admission?: Yes (4) Hypertension Qualifiers: Hypertension type: essential hypertension Qualified Code(s): I10 - Essential (primary) hypertension Is this a current diagnosis for this admission?: Yes (5) Hypothyroidism Qualifiers: Hypothyroidism type: unspecified Qualified Code(s): E03.9 - Hypothyroidism, unspecified Is this a current diagnosis for this admission?: Yes - Notes Notes: Patient generally improved. CHF improving. At this point will reduce torsemide to either every other day 20 mg a day 20 mg every other day or 10 mg a day. Have given for verbal orders to nurse to increase metoprolol succinate to 25 mg p.o. nightly and further to 50 twice daily if needed. Blood pressure seems well controlled and somewhat on the low side. Patient otherwise seems comfortable and progressing well. Will order an EKG and a chest x-ray for tomorrow. We will continue to follow patient. - Time Time with patient: Greater than 35 minutes - More than 50% of the time spent c oordinating care, discussing management plans with involved caregivers. Management plans discussed with involved personnels. Medical decision making was of moderate to high complexity, patient's has multiple comorbidities. Medications reviewed and adjusted accordingly: Yes
[2019-12-11 19:47] LABS: ANION GAP 6 (5-19); BLOOD UREA NITROGEN 19 mg/dL (7-20); CALCIUM 7.4 mg/dL (8.4-10.2); CARBON DIOXIDE 38 mmol/L (22-30); CHLORIDE 87 mmol/L (98-107); GLUCOSE 134 mg/dL (75-110); POTASSIUM 3.3 mmol/L (3.6-5.0)
[2019-12-11] MEDS: CALCIUM CARBONATE 500 MG TAB.CHEW PO PRN (21:55)
[2019-12-11] MEDS: ATORVASTATIN CALCIUM 40 MG TABLET PO SCH (21:55)
--- NOTE | 2019-12-11 22:37 | RADIOLOGY REPORT (SQ) ---
EXAM DESCRIPTION: PA and lateral radiographs of the chest CLINICAL HISTORY: 84 years Female, followup CHF COMPARISON: Portable view of the chest 12/08/2019 FINDINGS: Lungs: There is diffuse prominence of the interstitial markings with upper lobe vessel distention and recruitment. Bilateral pleural effusions are present right greater than left. There is volume loss in the lung bases right greater than left. Overall there is difference in technique but the appearance appears similar to the previous exam. No pneumothorax. Mediastinum: Heart size is mildly enlarged. Vascular calcifications are seen in the thoracic aorta. Bones: Osseous structures are normal. IMPRESSION: Mild changes of increased intravascular volume with bilateral pleural effusions right greater than left. The appearance is similar to the previous exam.
[2019-12-12] MEDS: LEVOTHYROXINE SODIUM 0.05 MG TABLET PO SCH (05:37)
[2019-12-12] MEDS: METOPROLOL SUCCINATE 25 MG TAB.SR.24H PO SCH (05:37)
[2019-12-12] MEDS ORDERED: POTASSIUM CHLORIDE 10 MEQ TABLET.ER PO ONE (07:44)
--- NOTE | 2019-12-12 07:44 | PDOC DISCHARGE SUMMARY ---
Impression - Admit/DC Date/PCP Admission Date/Primary Care Provider: 12/08/19 15:25 JOURDAN JIMENEZ MD Discharge Date: 12/12/19 - Discharge Diagnosis (1) Atrial fibrillation with RVR Is this a current diagnosis for this admission?: Yes (2) Acute on chronic combined systolic and diastolic congestive heart failure Is this a current diagnosis for this admission?: Yes (3) Hyperglycemia due to type 2 diabetes mellitus Is this a current diagnosis for this admission?: Yes (4) Hypertension Is this a current diagnosis for this admission?: Yes (5) Hypothyroidism Is this a current diagnosis for this admission?: Yes (6) Tricuspid regurgitation Is this a current diagnosis for this admission?: Yes (7) Pulmonary hypertension Is this a current diagnosis for this admission?: Yes (8) Hypokalemia Is this a current diagnosis for this admission?: Yes - Additional Information Resuscitation Status: Full Code Discharge Diet: Cardiac, Diabetic Discharge Activity: Activity As Tolerated, Balance Activity w/Rest, Weigh Daily Referrals: JOURDAN JIMENEZ MD [Primary Care Provider] - Follow up as needed (Office is closed 12/07-12/11 - per recording.) Prescriptions: Apixaban [Eliquis 2.5 mg Tablet] 5 mg PO Q12 15 Days #30 tablet Sacubitril/Valsartan [Entresto 97 mg/103 mg Tablet] 1 tab PO Q12 15 Days #30 tablet Potassium Chloride 10 meq PO DAILY 15 Days #15 tablet.er Metoprolol Succinate [Toprol Xl 50 mg Tab.sr] 50 mg PO ASDIR 15 Days #22 tab.sr.24h Torsemide 10 mg PO DAILY 15 Days #15 tablet Home Medications: Atorvastatin Calcium [Lipitor 40 mg Tablet] 40 mg PO QHS 12/08/19 Levothyroxine Sodium [Synthroid 0.05 mg Tablet] 0.05 mg PO Q6AM 12/08/19 Metformin HCl 0.5 tab PO BID 12/08/19 Apixaban [Eliquis 2.5 mg Tablet] 5 mg PO Q12 15 Days #30 tablet 12/12/19 Metoprolol Succinate [Toprol Xl 50 mg Tab.sr] 50 mg PO ASDIR 15 Days #22 tab.sr.24h 12/12/19 Potassium Chloride 10 meq PO DAILY 15 Days #15 tablet.er 12/12/19 Sacubitril/Valsartan [Entresto 97 mg/103 mg Tablet] 1 tab PO Q12 15 Days #30 tablet 12/12/19 Torsemide 10 mg PO DAILY 15 Days #15 tablet 12/12/19 History of Present Illiness History of Present Illness: ALICIA DAMON is a 84 year old female with a history of hypertension, type 2 diabetes mellitus, hypothyroidism, who presents with complaints of increased leg swelling going on for the past 10 days. Patient also admits to mild dyspnea on exertion. Denies any history of A. fib or congestive heart failure. Admits to orthopnea. Denies PND. Denies any chest pain, rhinorrhea, fever, chills. Denies sick contacts. Denies any out of state travels since August 2019. Denies any exposures to any known sick persons. She does occasionally get food from restaurants otherwise does not do much of any outing. Patient was noted to be A. fib RVR in the 130s in the ER and placed on Cardizem drip. Referred to hospitalist service for admission. Hospital Course Hospital Course: The patient had a fairly unremarkable hospital course. We achieved adequate rate control with metoprolol. She will be on anticoagulation at home. Dr. Ramires started her on Entresto and torsemide for her heart failure. She did develop mild hypokalemia and will be discharged on potassium. Physical therapy did see the patient. She will benefit from home physical therapy as well as assisted because of the multiple new medications. Physical Exam Vital Signs: Temp Pulse Resp BP Pulse Ox 97.6 F 89 17 114/52 L 100 12/12/19 04:12 12/12/19 06:57 12/12/19 04:12 12/12/19 04:12 12/12/19 04:12 Intake & Output 12/11/19 12/12/19 12/13/19 06:59 06:59 06:59 Intake Total 1077 1180 Output Total 3300 Balance -2223 1180 Weight 78.7 kg 78.7 kg General appearance: PRESENT: no acute distress, cooperative, well-developed Head exam: PRESENT: atraumatic, normocephalic Respiratory exam: PRESENT: clear to auscultation oswaldo, symmetrical, unlabored. ABSENT: rales, rhonchi, tachypnea, wheezes Cardiovascular exam: PRESENT: irregular rhythm, systolic murmur - 3/6 GI/Abdominal exam: PRESENT: normal bowel sounds, soft. ABSENT: distended, tenderness Rectal exam: PRESENT: deferred Neurological exam: PRESENT: alert, awake, oriented to person, oriented to place, oriented to time, oriented to situation, CN II-XII grossly intact Psychiatric exam: PRESENT: appropriate affect. ABSENT: agitated, anxious Focused psych exam: ABSENT: delusional, restlessness Skin exam: PRESENT: dry, normal color, warm. ABSENT: rash Results Laboratory Results: WBC 9.7 10^3/uL (4.0-10.5) 12/09/19 04:40 RBC 4.40 10^6/uL (3.72-5.28) 12/09/19 04:40 Hgb 11.3 g/dL (12.0-15.5) L 12/09/19 04:40 Hct 34.4 % (36.0-47.0) L 12/09/19 04:40 MCV 78 fl (80-97) L 12/09/19 04:40 MCH 25.6 pg (27.0-33.4) L 12/09/19 04:40 MCHC 32.7 g/dL (32.0-36.0) 12/09/19 04:40 RDW 15.4 % (11.5-14.0) H 12/09/19 04:40 Plt Count 195 10^3/uL (150-450) 12/09/19 04:40 Lymph % (Auto) 14.2 % (13-45) 12/09/19 04:40 Cole % (Auto) 13.1 % (3-13) H 12/09/19 04:40 Eos % (Auto) 0.6 % (0-6) 12/09/19 04:40 Baso % (Auto) 0.5 % (0-2) 12/09/19 04:40 Absolute Neuts (auto) 7.0 10^3/uL (1.7-8.2) 12/09/19 04:40 Absolute Lymphs (auto) 1.4 10^3/uL (0.5-4.7) 12/09/19 04:40 Absolute Monos (auto) 1.3 10^3/uL (0.1-1.4) 12/09/19 04:40 Absolute Eos (auto) 0.1 10^3/uL (0.0-0.6) 12/09/19 04:40 Absolute Basos (auto) 0.0 10^3/uL (0.0-0.2) 12/09/19 04:40 Total Counted 100 12/08/19 13:05 Seg Neutrophils % 71.6 % (42-78) 12/09/19 04:40 Seg Neuts % (Manual) 81 % (42-78) H 12/08/19 13:05 Lymphocytes % (Manual) 11 % (13-45) L 12/08/19 13:05 Monocytes % (Manual) 8 % (3-13) 12/08/19 13:05 Eosinophils % (Manual) 0 % (0-6) 12/08/19 13:05 Basophils % (Manual) 0 % (0-2) 12/08/19 13:05 Abs Neuts (Manual) 6.8 10^3/uL (1.7-8.2) 12/08/19 13:05 Abs Lymphs (Manual) 0.9 10^3/uL (0.5-4.7) 12/08/19 13:05 Abs Monocytes (Manual) 0.7 10^3/uL (0.1-1.4) 12/08/19 13:05 Absolute Eos (Manual) 0.0 10^3/uL (0.0-0.6) 12/08/19 13:05 Abs Basophils (Manual) 0.0 10^3/uL (0.0-0.2) 12/08/19 13:05 Platelet Comment ADEQUATE 12/08/19 13:05 Polychromasia SLIGHT 12/08/19 13:05 Anisocytosis 1+ 12/08/19 13:05 Microcytosis SLIGHT 12/08/19 13:05 Target Cells SLIGHT 12/08/19 13:05 Ovalocytes SLIGHT 12/08/19 13:05 M[place] Cells SLIGHT 12/08/19 13:05 PT 15.4 SEC (11.4-15.4) 12/08/19 13:05 INR 1.21 12/08/19 13:05 APTT 29.2 SEC (23.5-35.8) 12/08/19 13:05 Sodium 131.3 mmol/L (137-145) L 12/11/19 19:04 Potassium 3.3 mmol/L (3.6-5.0) L 12/11/19 19:04 Chloride 87 mmol/L (98-107) L 12/11/19 19:04 Carbon Dioxide 38 mmol/L (22-30) H 12/11/19 19:04 Anion Gap 6 (5-19) 12/11/19 19:04 BUN 19 mg/dL (7-20) 12/11/19 19:04 Creatinine 1.10 mg/dL (0.52-1.25) 12/11/19 19:04 Est GFR ( Amer) 57 (>60) L 12/11/19 19:04 Est GFR (MDRD) Non-Af 47 (>60) L 12/11/19 19:04 Glucose 134 mg/dL (75-110) H 12/11/19 19:04 POC Glucose 109 mg/dL (70-110) 12/12/19 07:35 Calcium 7.4 mg/dL (8.4-10.2) L 12/11/19 19:04 Phosphorus 3.6 mg/dL (2.5-4.5) 12/09/19 04:40 Magnesium 1.8 mg/dL (1.6-2.3) 12/10/19 04:50 Total Bilirubin 1.3 mg/dL (0.2-1.3) 12/08/19 13:05 Direct Bilirubin 0.3 mg/dL (0.0-0.4) 12/08/19 13:05 Neonat Total Bilirubin Not Reportable 12/08/19 13:05 Neonat Direct Bilirubin Not Reportable 12/08/19 13:05 Neonat Indirect Bili Not Reportable 12/08/19 13:05 AST 35 U/L (14-36) 12/08/19 13:05 ALT 21 U/L (<35) 12/08/19 13:05 Alkaline Phosphatase 125 U/L (38-126) 12/08/19 13:05 CK-MB (CK-2) 4.49 ng/mL (<4.55) 12/08/19 13:05 Troponin I 0.024 ng/mL 12/08/19 16:52 NT-Pro-B Natriuret Pep 3250 pg/mL (<450) H 12/11/19 19:04 Total Protein 7.3 g/dL (6.3-8.2) 12/08/19 13:05 Albumin 3.7 g/dL (3.5-5.0) 12/08/19 13:05 TSH 3.57 uIU/mL (0.47-4.68) 12/09/19 04:40 12/08/19 12/08/19 12/11/19 13:05 16:52 19:04 CK-MB (CK-2) 4.49 Troponin I 0.021 0.024 NT-Pro-B Natriuret Pep 04616 H 3250 H Impressions: Chest X-Ray 12/08/19 12:51 IMPRESSION: CHF. Chest X-Ray 12/11/19 18:39 IMPRESSION: Mild changes of increased intravascular volume with bilateral pleural effusions right greater than left. The appearance is similar to the previous exam. Plan Health Concerns: Atrial fibrillation, heart failure, multiple new medications. Plan of Treatment: New medications as outlined above. Follow-up with Dr. Ramires as well as her primary care provider Dr. Jimenez. Goals: Maintain control of her atrial fibrillation and congestive heart failure. Continue with good diabetic control. Strengthening with home physical therapy. Time Spent: Greater than 30 Minutes Stroke Is this a Stroke Patient?: No Acute Heart Failure - Is this a Heart Failure Patient?: Yes Documentation of LVEF assessment?: Yes LVEF < 40%?: Yes-if yes answer questions a through e a) Discharged on ACEI?: N/A Discharged on ARNI b) Discharges on ARB?: N/A-Discharged on ARNI c) Discharged on ARNI?: Yes d) Discharged on evidence-based Beta halima(carvedilol, sustained release m etoprolol succinate, or bisoprolol)?: Yes e) For LVEF <35%, discharged on Aldosterone antagonist?: N/A (LVEF > or = 35%) 3. Anticoagulant therapy for permanect/persistent/paraoxysmal Afib or Aflutter: Yes Follow-up Appointment scheduled within 7 days?: Yes
[2019-12-12 07:51] VITALS: BP 141/68
[2019-12-12] MEDS: INSULIN LISPRO 100 UNIT/ML 3 ML VIAL SUBCUT SCH (08:09)
[2019-12-12] MEDS: METFORMIN HCL 850 MG TABLET PO SCH (09:02)
[2019-12-12] MEDS: APIXABAN 2.5 MG TABLET PO SCH (09:02)
[2019-12-12] MEDS: SACUBITRIL/VALSARTAN 97 MG/103 MG TABLET PO SCH (09:05)
[2019-12-12] MEDS ORDERED: TORSEMIDE 20 MG TABLET PO SCH (10:00)
--- NOTE | 2019-12-12 16:52 | EKG REPORT ---
SEVERITY:- ABNORMAL ECG - ATRIAL FIBRILLATION, V-RATE 74-103 LEFT BUNDLE BRANCH BLOCK : Confirmed by: Laura Ramires 12-Dec-2019 16:51:43
== END 2019-12-12 10:00 | disposition home health service (06) | DRG 308 ==
LOC: ER 12:49 → EH 15:25 → 3W 16:08
PROVIDERS: ADMIT Internal Medicine; ATTEND Hospitalist
DX: I48.19 Other persistent atrial fibrillation (principal); I50.41 Acute combined systolic (congestive) and diastolic (congestive) heart failure; I11.0 Hypertensive heart disease with heart failure; E11.65 Type 2 diabetes mellitus with hyperglycemia; E03.9 Hypothyroidism, unspecified; I07.1 Rheumatic tricuspid insufficiency; I27.20 Pulmonary hypertension, unspecified; E87.6 Hypokalemia; I44.7 Left bundle-branch block, unspecified; E78.00 Pure hypercholesterolemia, unspecified; Z60.2 Problems related to living alone; Z79.899 Other long term (current) drug therapy; Z79.01 Long term (current) use of anticoagulants; Z88.8 Allergy status to other drugs, medicaments and biological substances
CPT/HCPCS: 36415; 71045; 71046; 80048; 80053; 82553; 82962; 83735; 83880; 84100; 84443; 84484; 85025; 85610; 85730; 93005; 93010; 93306; 96365; 96366; 96372; 96375; 99291; C1758; J1650; J1815; J1940; J3490

== ENCOUNTER → 2020-02-24 | Outpatient (CLI) | payer MEDICARE | LOC: OD 12:57 | PROVIDERS: ATTEND Family Medicine | DX: E11.65 Type 2 diabetes mellitus with hyperglycemia (principal) | CPT/HCPCS: 36415; 82043; 82570; 83036 ==